=== PATIENT | female | born 1960 | race Caucasian/White ===

== ENCOUNTER → 2023-12-26 11:39 | Outpatient (REF) | payer OTHER, SELFPAY | LOC: HWWDC 11:39 | PROVIDERS: ATTENDING PHYSICIAN Nurse Practitioner Adult Health | DX: Z12.31 Encounter for screening mammogram for malignant neoplasm of breast (principal) | CPT/HCPCS: 77063; 77067 ==

== ENCOUNTER → 2023-12-30 10:57 | Outpatient (REF) | payer OTHER, SELFPAY | LOC: HWRAD 10:57 | PROVIDERS: ATTENDING PHYSICIAN Nurse Practitioner Adult Health | DX: R22.42 Localized swelling, mass and lump, left lower limb (principal) | CPT/HCPCS: 76882 ==

== ENCOUNTER → 2024-10-29 10:44 | Outpatient (REF) | payer OTHER, SELFPAY | LOC: HWRAD 10:44 | PROVIDERS: ATTENDING PHYSICIAN Student in an Organized Health Care Education/Training Program; FAMILY PHYSICIAN Nurse Practitioner Adult Health | DX: M25.572 Pain in left ankle and joints of left foot (principal) | CPT/HCPCS: 73700 ==

== ENCOUNTER 2025-04-05 19:19 | Emergency (ER) | payer OTHER, SELFPAY ==
[2025-04-05 19:20] VITALS: BP 172/108
[2025-04-05 19:49] LABS: Urine Character Clear (Clear)
[2025-04-05 19:53] LABS: Hematocrit 38.5 % (37.0-47.0); Hemoglobin 12.9 g/dL (12.0-16.0); Mean Corp Hgb Conc. 33.5 g/dL (33.0-37.0); Mean Corpuscular Volume 84.1 fL (81.0-99.0); Nucleated Red Blood Cells % 0 %; Platelet Count 191 10^3/uL (130-400); Red Cell Dist. Width 14.2 % (11.5-14.5)
[2025-04-05 20:14] LABS: ALT (SGPT) 17 U/L (0-35); AST (SGOT) 23 U/L (14-36); Albumin 4.2 g/dl (3.5-5.0); Alkaline Phosphatase 92 U/L (38-126); Blood Urea Nitrogen 13 mg/dl (7-17); Calcium 9.6 mg/dl (8.4-10.2); Carbon Dioxide 23 mmol/L (22-30); Chloride 106 mmol/L (98-107); Glucose 94 mg/dl (70-99); Potassium 4.2 mmol/L (3.5-5.1); Sodium 135 mmol/L (135-145); Total Protein 6.9 g/dl (6.3-8.2); eGFR > 60.00
[2025-04-05 20:25] LABS: Troponin I < 0.012 ng/ml
[2025-04-05 20:35] LABS: Urine Red Blood Cell 0-2 /HPF (0-2); Urine Squamous Cell >30 /LPF (Few)
[2025-04-05 22:10] VITALS: BMI 38.1
[2025-04-05 22:13] VITALS: BP 156/66
--- NOTE | 2025-04-05 22:52 | ED.GENMED ---
History of Present Illness
General
Chief Complaint: Abdominal Pain
Source: patient
Time Seen by Provider: 04/05/25 22:39
History of Present Illness
History of Present Illness:
64-year-old female presents to the emergency room complaining of pain in her left abdomen. Pain primarily in the left upper abdomen. She also began having some chest heaviness today. The discomfort is not made worse by deep inspiration. She does
not feel short of breath. She did have a surgical procedure to her left ankle 2 weeks ago. She denies any fever or chills. She feels nauseous but has not vomited. She has had C-sections in the past. Nothing seems to make the pain better. It is
constant in nature. Movement does not make the pain worse.
Past History
Past History
ED Past Medical History: None
Social History
Tobacco: Non-smoker
Living: with family
Phy Exam
Physical Exam
Physical Exam:
General: Awake, Alert, Oriented X3. Appears a bit uncomfortable
Vitals: Tachycardic
Head: Atraumatic
Eyes: Pupils equal, EOMI
Throat: Airway intact, no exudates
Neck: Trachea midline
Lungs: Clear and equal b/l
Heart: Regular rate, no murmurs
Abd: Soft, tender to palpation left upper and lower abdomen, No pulsatile mass
Neuro: Nonfocal
Skin: Warm, dry, no rash
Extremities: pulses equal b/l, left ankle dressing intact. (Patient was told not to remove the dressing). Mild swelling left lower extremity
Sepsis
Sepsis Screening
Sepsis Assessment: Sepsis Ruled Out
Sepsis Screen
Sepsis Screen: Sepsis Ruled Out
Date: 04/06/25
Time: 05:46
Course
Orders/Labs/Results
Orders:
Orders
04/05/25 19:27
Electrocardiogram (*1) Urgent
Reason for Study: Other
Other Reason for Exam: Possible Sepsis
Cardiac Monitoring- Treatment ONCE
EKG- Treatment ONCE
IV Insert/Care/Rem.- Treatment PRN
O2 Therapy [RESP] Urgent
Titrate/Wean O2 to maintain O2 sat greater than (%): 93
Special Instructions: TO MAINTAIN CONTINUOUS O2 SATS > OR = 93%
Pulse Ox/cont/shift [RESP] Urgent
Quantity: 1
Special Instructions: CONTINUOUS
04/05/25 19:37
Complete Blood Count/With Diff Urgent
Comprehensive Metabolic Panel Urgent
Lactic Acid Q4H
Comment: ON ICE, CANCEL 2ND ORDER IF FIRST LACTIC ACID LEVEL <2
Lipase Urgent
Comment: ADDED
Troponin I Urgent
Urinalysis Urgent
Date Specimen was Collected: 04/05/25
Time Specimen was Collected: 19:28
Urine Microscopic Urgent
Date Specimen was Collected: 04/05/25
Time Specimen was Collected: 19:28
04/05/25 22:50
Ketorolac [Toradol] 15 mg IV NOW STA
04/05/25 22:51
CT Abd/pelvis W Iv Cont Urgent
Comment:
Reason For Exam: left upper abd pain
US Periph Venous LOWER Ext LT Urgent
Comment:
Reason For Exam: swelling, recent sx
04/05/25 22:56
Electrocardiogram (*1) Urgent
Reason for Study: Chest Pain
EKG- Treatment ONCE
04/06/25 00:46
Add On- LAB Urgent
Tests Added?: lipase
Abnormal Lab Results
04/05/25
19:37
MPV 13.1 H fL
(7.4-10.4)
Lymphocytes % 19.2 L %
(20.5-51.1)
Urine Ketones 2+ A
(Negative)
Urine Occult Blood 1+ A
(Negative)
Ur Leukocyte Esterase 2+ A
(Negative)
Urine WBC 6-10 A /HPF
(0-5)
Urine Bacteria Moderate A
(Negative)
Urine Albumin 2+ A
(Neg - Trace)
04/05/25 19:37
04/05/25 19:37
Vital Signs
Initial and Last Documented VS:
Initial Vital Signs
Temp Pulse Resp BP Pulse Ox
97.6 F 124 24 172/108 98
04/05/25 19:20 04/05/25 19:20 04/05/25 19:20 04/05/25 19:20 04/05/25 19:20
Last Documented Vital Signs
Temp Pulse Resp BP Pulse Ox
97.6 F 91 13 143/56 97
04/05/25 19:20 04/06/25 01:30 04/06/25 01:30 04/06/25 01:29 04/06/25 01:30
MDM/Problems Addressed
Differential Diagnosis Includes:
Diverticulitis, colitis, PE
MDM/Problems Addressed:
Patient presents complaining of upper abdominal pain. Labs are all pretty normal. CT of the abdomen pelvis shows some inflammatory changes about the pancreas. Pancreatitis would explain her symptomatology. The findings on the CAT scan are
described as mild. Patient is tolerating oral intake. Discussed hospitalization versus home management. Patient to some management. She will stick with clear liquids for the next 24 to 48 hours and advance her diet as tolerated. She understands
to return if she has severe pain, is unable to tolerate oral intake or feels like she is getting worse in any way. Advise no alcohol.
*Radiology
Radiology exam reviewed: radiology read reviewed
*Pulse Oximetry
SaO2: 100
Oxygen Mode of Delivery: Room air
Patient hypoxic: no
*EKG
Interpreted by ED Provider?: Yes
Heart Rate: 96
Rate: normal
*Critical Care Note
Total Time (30-74mins, 75-104mins- exclusive of procedures): Not Applicable
ED Attending Note
-
Portions of this chart may have been created with voice recognition software.� Occasional wrong word or��sound alike� substitutions may have occurred due to the inherent limitations of voice recognition software.
Discharge Plan
Departure
Patient Disposition: Home (Routine Discharge)
Date of Disposition: 04/06/25
Time of Disposition: 01:33
Patient with high blood pressure during this ER visit?: Yes
Condition: Good
Discharge Problem:
Acute abdominal pain, Acute pancreatitis
Instructions: Pancreatitis (DC), Abdominal Pain
Prescriptions:
No Action
No Meds
Referrals:
Niyah Bajwa MD [Active, Gastroenterology]
Mora Rueda CRNP [Family Provider, General]
Activity Restrictions/Additional Instructions:
stick with clear liquids for the next 24 to 48 hours. Advance diet if feeling well. Return for pain or inability to keep hydrated.
Interventions
Interventions:
*General Assessment Last Done: 04/05/25 22:10
*Neglect/Abuse Screening Last Done: 04/05/25 19:20
*ED COVID-19 Vaccine History Last Done: 04/05/25 22:10
*ED Influenza Vaccine History Last Done: 04/05/25 22:10
[facility] Risk Assessment Tool Last Done: 04/05/25 22:10
*Risk Screen - Suicide (C-SSRS) Last Done: 04/05/25 19:20
*Nursing Disposition Last Done: 04/06/25 01:38
SZ-Jahwxc-Bqhxldzaeq Assessment Last Done: 04/05/25 22:10
ED- Cardiac Assessment Last Done: 04/05/25 22:15
Discharge Date and Time
Discharge Date/Time: 04/06/25 01:52
Print Language: SPANISH
[2025-04-05] MEDS: TORADOL 15 MG IV (23:24)
[2025-04-05 23:25] VITALS: BP 142/71
[2025-04-06 01:20] LABS: Lipase 268 U/L (23-300)
[2025-04-06 01:29] VITALS: BP 143/56
== END 2025-04-06 01:52 | disposition home or self-care (01) ==
LOC: EMR 19:19
PROVIDERS: Student in an Organized Health Care Education/Training Program; EMERGENCY PHYSICIAN Emergency Medicine; FAMILY PHYSICIAN Nurse Practitioner Adult Health
DX: K85.90 Acute pancreatitis without necrosis or infection, unspecified (principal); R07.89 Other chest pain
CPT/HCPCS: 96374; 99284; 74177; 80053; 81003; 81015; 83605; 83690; 84484; 85025; 93005; 93971; Q9967